=== PATIENT | female | born 1955 | race Caucasian/White ===

== ENCOUNTER 2018-09-14 23:42 | Emergency (ER) | payer SELFPAY ==
[2018-09-15] MEDS: HYDROCODONE/APAP (5/325) TAB PO (01:40)
[2018-09-15] MEDS: ONDANSETRON (ODT) 4 MG TAB ODT (01:40)
[2018-09-15] MEDS: predniSONE 20 MG TAB PO (01:40)
== END 2018-09-15 01:50 | disposition home or self-care (01) ==
LOC: FTE 23:42
DX: S30.821A Blister (nonthermal) of abdominal wall, initial encounter (principal); X58.XXXA Exposure to other specified factors, initial encounter; Y92.9 Unspecified place or not applicable
CPT/HCPCS: 99283